=== PATIENT | female | born 1965 | race Hispanic/Latino ===

== ENCOUNTER 2018-10-18 21:57 | Emergency (ER) | payer SELFPAY ==
[2018-10-18 23:21] LABS: Absolute Monocytes 0.5 K/uL (0.1-1.3); Absolute Neutrophil 4.9 K/uL (1.8-8.0); Basophils % 0.5 % (0-1.3); Eosinophils % 1.6 % (0-4.4); Hematocrit 30.2 % (36.0-45.0); Lymphocytes % 15.8 % (15.3-44.8); MPV 7.4 fL (7.6-11.3); Monocytes % 7.7 % (3.3-12.3); RBC Red Blood Cell Count 3.03 M/uL (3.86-4.86)
[2018-10-18 23:25] LABS: Protime INR 1.04
[2018-10-18 23:45] LABS: ALT/SGPT 31 U/L (12-78); AST/SGOT 15 U/L (15-37); Alkaline Phosphatase 83 U/L (45-117); BUN Blood Urea Nitrogen 19 mg/dL (7-18); Bicarbonate 25 mmol/L (21-32); Bilirubin Direct < 0.1 mg/dL (0-0.2); Bilirubin Total 0.2 mg/dL (0.2-1.0); Glucose Level 107 mg/dL (74-106); Magnesium 1.8 mg/dL (1.8-2.4); NT PRO-BNP 90 pg/mL (<125); Potassium 3.6 mmol/L (3.5-5.1); Protein, Total 8.2 g/dL (6.4-8.2); Sodium Level 141 mmol/L (136-145); Troponin (Emerg Dept Use Only) < 0.02 ng/mL (0.0-0.045)
[2018-10-18 23:55] LABS: Urine Blood NEGATIVE (NEG); Urine Glucose NEGATIVE (NEG); Urine Protein NEGATIVE (NEG)
--- NOTE | 2018-10-19 02:48 | ER ---
Nurse's Notes [facility] Name: Daphnie Graff Age: 53 yrs Sex: Female : 1965 Arrival Date: 10/18/2018 Time: 22:03 Bed 28 Private MD: Diagnosis: Chest pain, unspecified Presentation: 10/18 22:05 Presenting complaint: Mother states: Chest pain that began one hour ago and also pain la1 in her sacral area. Transition of care: patient was not received from another setting of care. Onset of symptoms was October 18, 2018. Risk Assessment: Do you want to hurt yourself or someone else? Patient reports no desire to harm self or others. Initial Sepsis Screen: Does the patient meet any 2 criteria? No. Patient's initial sepsis screen is negative. Does the patient have a suspected source of infection? No. Patient's initial sepsis screen is negative. Care prior to arrival: None. 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 - Social history:: Smoking status: . - Ebola Screening: : No symptoms or risks identified at this time. Screenin:05 Abuse screen: Denies threats or abuse. Denies injuries from another. Nutritional mg2 screening: No deficits noted. Tuberculosis screening: No symptoms or risk factors identified. Fall Risk IV access (20 points). Assessment: 23:05 General: Appears in no apparent distress. comfortable, Behavior is calm, cooperative. mg2 Pain: Complains of pain in chest Pain does not radiate. Pain began suddenly, 30 min ago. Neuro: Level of Consciousness is awake, alert, obeys commands, Oriented to person, place, time, situation. Cardiovascular: Chest pain is described as mild, quality is burning, pressure. Respiratory: Airway is patent Respiratory effort is even, unlabored, Respiratory pattern is regular, symmetrical. GI: No signs and/or symptoms were reported involving the gastrointestinal system. : No signs and/or symptoms were reported regarding the genitourinary system. EENT: No deficits noted. Derm: Skin is intact, is healthy with good turgor, Skin is pink, warm \T\ dry. normal. Musculoskeletal: Circulation, motion, and sensation intact. Capillary refill < 3 seconds. 10/19 00:59 Reassessment: dr retana came and saw the patient. mg2 03:15 Reassessment: Patient appears in no apparent distress at this time. Patient and/or mg2 family updated on plan of care and expected duration. Pain level reassessed. online it project manager utilized. Patient denies pain at this time. Patient states feeling better. Vital Signs: 10/18 22:09 BP 145 / 94; Pulse 73; Resp 16; Temp 98.1; Pulse Ox 98% on R/A; Weight 74.39 kg; la1 22:10 Pain 7/10; la1 10/19 00:19 BP 136 / 95; Pulse 63; Resp 18; Temp 98.1; Pulse Ox 98% on R/A; Pain 1/10; mg2 01:14 BP 156 / 98; Pulse 68; Resp 18; Temp 98.2; Pulse Ox 100% on R/A; mg2 03:15 BP 145 / 78; Pulse 70; Resp 18; Temp 98.4; Pulse Ox 100% on R/A; Pain 0/10; mg2 ED Course: 10/18 22:03 Patient arrived in ED. am2 22:05 Arm band placed on left wrist. la1 22:06 Triage completed. la1 22:24 Jose Manuel Simon, [place] is Primary Nurse. mg2 22:46 Kev Whitfield NP is PHCP. pm1 22:46 Josué Fung MD is Attending Physician. pm1 23:05 No provider procedures requiring assistance completed. Inserted saline lock: 20 gauge mg2 in left antecubital area, using aseptic technique. Blood collected. Patient maintains SpO2 saturation greater than 95% on room air. 23:06 Patient has correct armband on for positive identification. desk monitor on. Pulse mg2 ox on. NIBP on. 23:27 X-ray completed. Portable x-ray completed in exam room. Patient tolerated procedure kw well. 23:28 XRAY Chest (1 view) In Process Unspecified. EDMS 10/19 02:10 Repeat lab(s) drawn. by me, sent to lab. mg2 03:15 IV discontinued, intact, bleeding controlled, No redness/swelling at site. Pressure mg2 dressing applied. Administered Medications: No medications were administered Outcome: 02:48 Discharge ordered by MD. pm1 03:15 Discharged to home ambulatory. mg2 03:15 Condition: stable 03:15 Discharge instructions given to patient, Instructed on discharge instructions, follow up and referral plans. Demonstrated understanding of instructions, follow-up care. 03:16 Patient left the ED. mg2 Signatures: Dispatcher [employer] EDMS Dorina Garduno Lee, RN RN la1 Kev Whitfield NP SLUDGE CONTROL ATTENDANT pm1 Vilma Stanton am2 Jose Manuel Simon RN RN mg2 Corrections: (The following items were deleted from the chart) 03:16 03:15 Reassessment: Patient appears in no apparent distress at this time. Patient mg2 and/or family updated on plan of care and expected duration. Pain level reassessed. Patient denies pain at this time. Patient states feeling better. mg2
--- NOTE | 2018-10-19 02:49 | EDPHYS ---
Physician Documentation [facility] Name: Daphnie Graff Age: 53 yrs Sex: Female : 1965 Arrival Date: 10/18/2018 Time: 22:03 Bed 28 Private MD: ED Physician Josué Fung HPI: 10/18 23:05 This 53 yrs old Female presents to ER via Ambulatory with complaints of High pm1 Blood Pressure, Chest Pain. 23:05 The patient has elevated blood pressure and discovered this at home, with a home pm1 device. Onset: The symptoms/episode began/occurred 1 hour prior to arrival. Modifying factors: The symptoms are aggravated by nothing, The symptoms are alleviated by nothing. Associated signs and symptoms: The patient has no apparent associated signs or symptoms, Pertinent negatives: chest pain, dizziness, dyspnea, headache, nausea, vomiting, weakness. Severity of symptoms: in the emergency department the blood pressure is improved. The patient has not experienced similar symptoms in the past. The patient has not recently seen a physician, vacationing here in the . 23:05 The patient or guardian reports chest pain that is located primarily in the mid-sternal pm1 area. The pain does not radiate. Associated signs and symptoms: The patient has no apparent associated signs or symptoms. The chest pain is described as sharp. Duration: The patient or guardian reports multiple episodes, approximately 3 episodes since symptom onset, the episodes last approximately 3 second(s). Severity of pain: in the emergency department the pain has resolved. 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 - Social history:: Smoking status: . - Ebola Screening: : No symptoms or risks identified at this time. ROS: 23:05 Constitutional: Negative for fever, chills, and weight loss, Eyes: Negative for injury, pm1 pain, redness, and discharge, ENT: Negative for injury, pain, and discharge, Neck: Negative for injury, pain, and swelling. 23:05 Respiratory: Negative for shortness of breath, cough, wheezing, and pleuritic chest pain, Abdomen/GI: Negative for abdominal pain, nausea, vomiting, diarrhea, and constipation. 23:05 : Negative for injury, bleeding, discharge, and swelling, MS/Extremity: Negative for injury and deformity, Skin: Negative for injury, rash, and discoloration, Neuro: Negative for headache, weakness, numbness, tingling, and seizure. 23:05 Cardiovascular: Positive for chest pain, Negative for edema, orthopnea, palpitations. 23:05 Back: Positive for of the low back area. Exam: 22:23 ECG was reviewed by the Attending Physician. NSR, Normal ECG pm1 23:05 Constitutional: This is a well developed, well nourished patient who is awake, alert, pm1 and in no acute distress. Head/Face: Normocephalic, atraumatic. Eyes: Pupils equal round and reactive to light, extra-ocular motions intact. Lids and lashes normal. Conjunctiva and sclera are non-icteric and not injected. Cornea within normal limits. Periorbital areas with no swelling, redness, or edema. ENT: Nares patent. No nasal discharge, no septal abnormalities noted. Tympanic membranes are normal and external auditory canals are clear. Oropharynx with no redness, swelling, or masses, exudates, or evidence of obstruction, uvula midline. Mucous membranes moist. Neck: Trachea midline, no thyromegaly or masses palpated, and no cervical lymphadenopathy. Supple, full range of motion without nuchal rigidity, or vertebral point tenderness. No Meningismus. Chest/axilla: Normal chest wall appearance and motion. Nontender with no deformity. No lesions are appreciated. Cardiovascular: Regular rate and rhythm with a normal S1 and S2. No gallops, murmurs, or rubs. Normal PMI, no JVD. No pulse deficits. Respiratory: Lungs have equal breath sounds bilaterally, clear to auscultation and percussion. No rales, rhonchi or wheezes noted. No increased work of breathing, no retractions or nasal flaring. Abdomen/GI: Soft, non-tender, with normal bowel sounds. No distension or tympany. No guarding or rebound. No evidence of tenderness throughout. Back: No spinal tenderness. No costovertebral tenderness. Full range of motion. Skin: Warm, dry with normal turgor. Normal color with no rashes, no lesions, and no evidence of cellulitis. MS/ Extremity: Pulses equal, no cyanosis. Neurovascular intact. Full, normal range of motion. 23:05 Neuro: Orientation: is normal, Motor: is normal, moves all fours, Gait: is steady, at a normal pace, without difficulty. Vital Signs: 22:09 BP 145 / 94; Pulse 73; Resp 16; Temp 98.1; Pulse Ox 98% on R/A; Weight 74.39 kg; la1 22:10 Pain 7/10; la1 16 00:19 BP 136 / 95; Pulse 63; Resp 18; Temp 98.1; Pulse Ox 98% on R/A; Pain 1/10; mg2 01:14 BP 156 / 98; Pulse 68; Resp 18; Temp 98.2; Pulse Ox 100% on R/A; mg2 03:15 BP 145 / 78; Pulse 70; Resp 18; Temp 98.4; Pulse Ox 100% on R/A; Pain 0/10; mg2 MDM: 10/18 22:53 Patient medically screened. pm1 10/19 01:00 Physician consultation: Jose A Honeycutt MD was contacted at 01:00, regarding patient's pm1 condition, determination if patient meets criteria for admission, in the emergency department to see patient at 01:00, Recommends repeat troponin in 1 hour. If negative patient can be discharged home.. 02:47 Data reviewed: vital signs. Data interpreted: Pulse oximetry: on room air is 100 %. pm1 Interpretation: normal. Counseling: I had a detailed discussion with the patient and/or guardian regarding: the historical points, exam findings, and any diagnostic results supporting the discharge/admit diagnosis, lab results, radiology results, the need for outpatient follow up, to return to the emergency department if symptoms worsen or persist or if there are any questions or concerns that arise at home. 10/18 22:34 Order name: Urine Dipstick--Ancillary (enter results); Complete Time: 00:25 mw2 10/18 22:34 Order name: Urine --Ancillary (enter results); Complete Time: 00:25 mw2 10/18 22:46 Order name: Basic Metabolic Panel pm1 10/18 22:46 Order name: CBC with Diff pm1 10/18 22:46 Order name: LFT's pm1 10/18 22:46 Order name: Magnesium; Complete Time: 00:25 pm1 10/18 22:46 Order name: NT PRO-BNP; Complete Time: 00:25 pm1 10/18 22:46 Order name: PT-INR; Complete Time: 23:33 pm1 10/18 22:46 Order name: Troponin (emerg Dept Use Only); Complete Time: 00:25 pm1 10/18 22:46 Order name: XRAY Chest (1 view) pm1 10/18 22:47 Order name: Basic Metabolic Panel; Complete Time: 00:25 EDMS 10/18 22:47 Order name: CBC with Automated Diff; Complete Time: 23:33 EDMS 10/18 22:47 Order name: Liver (Hepatic) Function; Complete Time: 00:25 EDMS 16 02:07 Order name: Troponin (emerg Dept Use Only); Complete Time: 02:47 pm1 10/18 22:46 Order name: EKG; Complete Time: 22:47 pm1 10/18 22:46 Order name: Cardiac monitoring; Complete Time: 23:04 pm1 10/18 22:46 Order name: EKG - Nurse/Tech; Complete Time: 22:48 pm1 10/18 22:46 Order name: IV Saline Lock; Complete Time: 23:05 pm1 10/18 22:46 Order name: Labs collected and sent; Complete Time: 23:05 pm1 10/18 22:46 Order name: O2 Per Protocol; Complete Time: 23:05 pm1 10/18 22:46 Order name: O2 Sat Monitoring; Complete Time: 23:05 pm1 Administered Medications: No medications were administered Disposition: 07:53 Co-signature as Attending Physician, Josué Fung MD I agree with the assessment and wa plan of care. Disposition: 10/19/18 02:48 Discharged to Home. Impression: Chest pain, unspecified. - Condition is Stable. - Discharge Instructions: Nonspecific Chest Pain. - Medication Reconciliation Form, Thank You Letter, Antibiotic Education, Prescription Opioid Use form. - Follow up: Emergency Department; When: As needed; Reason: Worsening of condition. Follow up: Private Physician; When: 2 - 3 days; Reason: Recheck today's complaints, Continuance of care, Re-evaluation by your physician. - Problem is new. - Symptoms have improved. Signatures: Dispatcher [employer] EDMS Michael Sanders RN RN la1 Kev Whitfield, AYDE HOUSE STEWARD/STEWARDESS pm1 Josué Fung MD MD wa Gardose, Michele, RN RN mg2 Corrections: (The following items were deleted from the chart) 03:16 02:48 10/19/2018 02:48 Discharged to Home. Impression: Chest pain, unspecified. mg2 Condition is Stable. Forms are Medication Reconciliation Form, Thank You Letter, Antibiotic Education, Prescription Opioid Use. Follow up: Emergency Department; When: As needed; Reason: Worsening of condition. Follow up: Private Physician; When: 2 - 3 days; Reason: Recheck today's complaints, Continuance of care, Re-evaluation by your physician. Problem is new. Symptoms have improved. pm1
--- NOTE | 2018-10-19 07:56 | RAD REPORT ---
EXAM DESCRIPTION: Giuliana Single View10/18/2018 11:28 pm CLINICAL HISTORY: Chest pain COMPARISON: none FINDINGS: The lungs appear clear of acute infiltrate. The heart is normal size Old rib fractures IMPRESSION: No acute abnormalities displayed
--- NOTE | 2018-10-19 12:46 | EKG ---
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
== END 2018-10-19 03:16 | disposition home or self-care (01) ==
LOC: ER 21:57
DX: R07.9 Chest pain, unspecified (principal)
CPT/HCPCS: 36415; 71045; 80048; 80076; 81003; 81025; 83735; 83880; 84484; 85025; 85610; 93005; 99285